=== PATIENT | female | born 1960 | race Caucasian/White ===

== ENCOUNTER → 2022-01-17 | Outpatient (CLI) | payer BC ==
[~2022-01-17] MED LIST: ASPIR-LOW81 MG PO; ATORVASTATIN CA40 MG PO; BASAGLAR K100 UNIT/1 SQ; GABAPENTIN300 MG PO; HYDROXYZINE HCL50 MG PO; METFORMIN HCL500 M2 PO; NOVOLOG 10100 UNITS/ INJ; PANTOPRAZOLE SO40 MG PO; PAROXETINE HCL10 MG PO; RA P-COL RITE1 EACH PO; TRIAMTERENE-HC1 EAC3 PO; VITAMIN D21250 MCG PO; ZESTRIL5 MG PO; ZOFRAN4 MG PO
== END ==
LOC: KOH-I 10:00
DX: M50.01 Cervical disc disorder with myelopathy, high cervical region (principal); M48.061 Spinal stenosis, lumbar region without neurogenic claudication
CPT/HCPCS: 72125